=== PATIENT | male | born 1980 | race Hispanic/Latino ===

== ENCOUNTER → 2020-10-20 | Outpatient (CLI) | payer OTHER | END | disposition home or self-care (01) | LOC: SHCH 09:50 | PROVIDERS: ATTEND Internal Medicine Cardiovascular Disease | DX: I87.2 Venous insufficiency (chronic) (peripheral) (principal) | CPT/HCPCS: 93970 ==

== ENCOUNTER → 2021-02-12 | Outpatient (CLI) | payer OTHER | END | disposition home or self-care (01) | LOC: SHCH 09:39 | PROVIDERS: ATTEND Internal Medicine Cardiovascular Disease | DX: Z09 Encounter for follow-up examination after completed treatment for conditions other than malignant neoplasm (principal); I87.2 Venous insufficiency (chronic) (peripheral) | CPT/HCPCS: 93971 ==

== ENCOUNTER 2022-08-09 15:50 | Emergency (ER) | payer OTHER ==
[~2022-08-09] VITALS: Ht 170.2 cm; Wt 136.1 kg
[2022-08-09 17:25] LABS: BASOPHILS % (AUTO) 0.2 % (0.0-5.0); EOSINOPHILS % (AUTO) 0.8 % (0.0-8.0); HEMATOCRIT 44.8 % (42-54); LYMPHOCYTES % (AUTO) 11.7 % (21.0-51.0); MEAN CORPUSCULAR HEMOGLOBIN 28.4 pg (27.0-33.0); MEAN CORPUSCULAR HGB CONC 32.4 g/dL (32.0-36.0); MEAN CORPUSCULAR VOLUME 87.8 fL (79-99); MONOCYTES % (AUTO) 8.6 % (3.0-13.0); NEUTROPHILS % (AUTO) 78.4 % (40.0-77.0); PLATELET COUNT (AUTO) 195 K/uL (130-400); RED CELL DISTRIBUTION WIDTH 14.4 % (11.0-15.5); WHITE BLOOD COUNT (AUTO) 11.9 K/uL (4.8-10.8)
[2022-08-09 17:48] LABS: APPEARANCE,URINE CLEAR (CLEAR); BILIRUBIN,URINE NEGATIVE (NEGATIVE); COLOR,URINE LIGHT-YELLOW (YELLOW); GLUCOSE, URINE (UA) NEGATIVE (NEGATIVE); KETONES,URINE NEGATIVE (NEGATIVE); LEUKOCYTE ESTERASE ,URINE NEGATIVE Leu/uL (NEGATIVE); NITRATE,URINE NEGATIVE (NEGATIVE); PROTEIN,URINE NEGATIVE (NEGATIVE); UROBILINOGEN,URINE 0.2 mg/dL (0.2-1.0)
[2022-08-09 17:50] LABS: CREATININE 0.9 mg/dL (0.5-1.5); POTASSIUM 3.8 mmol/L (3.5-5.1)
[2022-08-09 17:52] LABS: MUCUS,URINE RARE LPF (None Seen); WBC,URINE 0-1 /HPF (0-1)
[2022-08-09 18:01] LABS: TOTAL PROTEIN, SERUM 7.8 g/dL (6.0-8.3)
[2022-08-09] MEDS ORDERED: PRED5TAB PO (18:31)
[2022-08-09 18:37] VITALS: BP 132/65
== END 2022-08-09 18:49 | disposition home or self-care (01) ==
LOC: EDH 15:50
DX: L30.1 Dyshidrosis [pompholyx] (principal); M79.89 Other specified soft tissue disorders; M25.561 Pain in right knee; I10 Essential (primary) hypertension; E11.9 Type 2 diabetes mellitus without complications; Z98.890 Other specified postprocedural states
CPT/HCPCS: 36415; 73562; 80053; 81001; 83605; 85025; 87040

== ENCOUNTER → 2022-09-23 | Outpatient (CLI) | payer OTHER ==
[~2022-09-23] MED LIST: PRED5TAB PO
== END | disposition home or self-care (01) ==
LOC: SHCH 14:22
PROVIDERS: ATTEND Internal Medicine Cardiovascular Disease
DX: I87.2 Venous insufficiency (chronic) (peripheral) (principal); I87.1 Compression of vein
CPT/HCPCS: 93970

== ENCOUNTER → 2024-09-15 | Outpatient (CLI) | payer OTHER ==
--- NOTE | 2024-09-18 12:20 | HMCSR ---
APPROVED REPORT Laterality: Bilateral Indications PVD VELOCITY AND DOPPLER WAVEFORM ANALYSIS AIRPLANE PATROLLER (R) 106.5cm/sec, Triphasic, AIRPLANE PATROLLER (L) 115.8cm/sec, Triphasic, Prof Fem Art. (R) 64.4cm/sec, Triphasic, Prof Fem Art. (L) 53.8cm/sec, Triphasic, Fem Art Prox. (R) 103.0cm/sec, Triphasic, Fem Art Prox. (L) 92.6cm/sec, Triphasic, Fem Art Mid. (R) 101.4cm/sec, Triphasic, Fem Art Mid. (L) 87.9cm/sec, Triphasic, Fem Art Dist (R) 118.7cm/sec, Triphasic, Fem Art Dist. (L) 114.6cm/sec, Triphasic, Pop Art(AK) (R) 88.3cm/sec, Triphasic, Pop Art (AK) (L) 79.9cm/sec, Triphasic, Pop Art (Fossa)(R) 74.1cm/sec, Triphasic, Pop Art (Fossa) (L) 70.0cm/sec, Triphasic, Pop Art(BK) (R) 84.5cm/sec, Triphasic, Pop Art (BK) (L) 75.4cm/sec, Triphasic, INDUSTRIAL RELATIONS WORKER Prox. (R) cm/sec, INDUSTRIAL RELATIONS WORKER Prox. (L) cm/sec, INDUSTRIAL RELATIONS WORKER Dist. (R) 113.5cm/sec, Triphasic, INDUSTRIAL RELATIONS WORKER Dist. (L) 89.7cm/sec, Triphasic, Per Art Dist. (R) 71.8cm/sec, Triphasic, Per Art Dist. (L) 53.1cm/sec, Triphasic, JEFFRY Dist. (R) 74.1cm/sec, Triphasic, JEFFRY Dist. (L) 97.2cm/sec, Triphasic, Technologist Impression No evidence of significant arterial insufficiency of bilateral lower extremities. Triphasic waveforms seen in the bilateral lower extremities. Conclusion No evidence of significant arterial insufficiency of bilateral lower extremities. Conclusion No evidence of significant arterial insufficiency of bilateral lower extremities.
--- NOTE | 2024-09-18 12:20 | HMCSR ---
APPROVED REPORT Bilateral Lower Extremity Venous Study for DVT., Venous Competence. 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 No evidence of DVT. 14.2mm 733ms of DVR. SFJ (R): Normal flow, augmentation and compression. No evidence of DVT. FEM (R): Normal flow, augmentation and compression. No evidence of DVT. POP (R): Normal flow, augmentation and compression. No evidence of DVT. DFV (R): Normal flow, augmentation and compression. No evidence of DVT. PTV (R): Normal flow, augmentation and compression. No evidence of DVT. Peroneals (R): Normal flow, augmentation and compression. No evidence of DVT. CFV (L): Normal flow, augmentation and compression. No evidence of DVT. 15.8mm 728ms of DVR. SFJ (L): Normal flow, augmentation and compression. No evidence of DVT. FEM (L): Normal flow, augmentation and compression. No evidence of DVT. POP (L): Normal flow, augmentation and compression. No evidence of DVT. DFV (L): Normal flow, augmentation and compression. No evidence of DVT. PTV (L): Normal flow, augmentation and compression. No evidence of DVT. Peroneals (L): Normal flow, augmentation and compression. No evidence of DVT. Technologist Impression Deep veins of the bilateral lower extremities appear patent and compressible without thrombus. No significant deep vein reflux seen. Superficial venous insufficiency seen in the RGSV, RSSV, LGSV. RGSV junction 7.2mm 644ms thigh 7.5mm 1922ms knee 5.2mm 2139ms (superficial) calf 4.4mm 750ms (Tortuous) RSSV prox 1.8mm 706ms mid 1.8mm 561ms (cluster of veins) LGSV junction 5.4mm 394ms thigh 5.6mm 3044ms (Cluster of veins) knee 5.3mm 3783ms calf 4.1mm 789ms (cluster of Veins) LSSV prox 2.7mm 389ms mid 3.2mm 328ms (Tortuous) Conclusion No DVT Superficial venous insufficiency seen in the RGSV, RSSV, LGSV. Moderate deep venous reflux noted bilaterally Clinical correlation recommended Conclusion No DVT Superficial venous insufficiency seen in the RGSV, RSSV, LGSV. Moderate deep venous reflux noted bilaterally Clinical correlation recommended
--- NOTE | 2024-09-18 12:21 | HMCSR ---
APPROVED REPORT EXAM: Two-dimensional and M-mode echocardiogram with Doppler and color Doppler. 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6 cm/sP 1/2 T68 ms E/A ratio1.3MVA (PHT)3.2 cm2 MR Max PG105 mmHg TDI E/E' Yymipg78.5E/E' Lateral9.9 Lateral E' Peak V10.50 cm/s Pulmonary Valve PV Vmax1.3 m/sPV VTI0.28 mPV Mean GR4.0 mmHg PV Peak GR6.8 mmHg Tricuspid Valve TR Vmax2.7 m/sRAP (EST) 8 lmJdZHBG04.1 mmHg TR Peak GR29.1 mmHg Left Ventricle Left ventricular cavity size is normal. There is normal LV segmental wall motion. Global strain at -1 4.5% There is mild concentric left ventricular hypertrophy. LVEF is 55-60%. Left ventricular filling pattern is normal for age. Right Ventricle The right ventricle is normal size. The right ventricular systolic function is normal. Atria The left atrium is mildly dilated. The right atrium size is normal. Aortic Valve Aortic valve is trileaflet. Aortic valve leaflets are sclerotic but open well. Trace aortic regurgita tion. There is no aortic valvular stenosis. Mitral Valve Mitral valve leaflets appear normal. Mitral regurgitation is trace. There is no mitral valve stenosis . Tricuspid Valve The tricuspid valve leaflets appear normal. There is trace to mild tricuspid regurgitation. Right valerie tricular systolic pressure is estimated at 30-40 mmHg. Pulmonic Valve The pulmonic valve leaflets are thin and pliable; valve motion is normal. There is trace pulmonic abbey vular regurgitation. Great Vessels The aortic root is normal in size. IVC is dilated and collapses >50% with inspiration. Pericardium No pericardial effusion. Conclusion LVEF is 55-60%. There is mild concentric left ventricular hypertrophy. There is normal LV segmental wall motion. There is trace to mild tricuspid regurgitation. Right ventricular systolic pressure is estimated at 30-40 mmHg. The aortic root is normal in size.
== END | disposition home or self-care (01) ==
LOC: SHCH 13:14
PROVIDERS: ATTEND Internal Medicine Cardiovascular Disease
DX: I08.2 Rheumatic disorders of both aortic and tricuspid valves (principal); I11.9 Hypertensive heart disease without heart failure; I87.2 Venous insufficiency (chronic) (peripheral); I87.1 Compression of vein; I87.8 Other specified disorders of veins; I25.10 Atherosclerotic heart disease of native coronary artery without angina pectoris; I73.9 Peripheral vascular disease, unspecified; R07.9 Chest pain, unspecified; R06.02 Shortness of breath
CPT/HCPCS: 93306; 93356; 93925; 93970